=== PATIENT | male | born 1965 | race Caucasian/White ===

== ENCOUNTER 2022-11-05 17:38 | Emergency (ER) | payer OTHER ==
[2022-11-05 18:05] VITALS: BP 155/90; PULSE 88; RESP 20; TEMP 98.2; BMI 25.8
[2022-11-05] MEDS ORDERED: KETOROLAC TROMETHAMINE 30 MG/1 ML VIAL IM ONE (18:12)
[2022-11-05] MEDS ORDERED: KETOROLAC TROMETHAMINE 30 MG/1 ML VIAL ONE (18:48)
[2022-11-05 19:21] LABS: ALBUMIN 4.1 g/dl (3.4-5.0); BILIRUBIN,TOTAL 1.1 mg/dl (0.2-1); CALCIUM 8.9 mg/dl (8.5-10); CREATININE 1.2 mg/dl (0.55-1.3); TOT PROT 7.4 g/dl (6.4-8.2)
[2022-11-05] MEDS ORDERED: ONDANSETRON *ODT* 4 MG TABLET SL ONE (19:46)
[2022-11-05] MEDS ORDERED: ONDANSETRON *ODT* 4 MG TABLET ONE (19:48)
[2022-11-05 20:16] LABS: CALCIUM OXALATE CRYSTALS FEW /hpf (NONE SEEN)
[2022-11-05] MEDS ORDERED: TAMSULOSIN HCL 0.4 MG CAP PO ONE (20:32)
[2022-11-05] MEDS ORDERED: TAMSULOSIN HCL 0.4 MG CAP ONE (20:34)
== END 2022-11-05 20:35 | disposition home or self-care (01) ==
LOC: FER 17:38
PROC: 3E0233Z Introduction of Anti-inflammatory into Muscle, Percutaneous Approach (ICD-10-PCS; principal; 2022-11-05)
DX: N23 Unspecified renal colic (principal)
CPT/HCPCS: 36415; 74018-TC-FY; 76775-TC; 76856-TC; 80053; 81003; 81015; 87086; 99285-25; Q0162

== ENCOUNTER 2022-12-07 16:38 | Day surgery (SDC) | payer OTHER ==
[2022-12-07] MEDS ORDERED: KETOROLAC TROMETHAMINE 30 MG/1 ML VIAL IVPUSH ONE (16:53)
[2022-12-07] MEDS ORDERED: SODIUM CHLORIDE 1,000 ML IV ONE (16:53)
[2022-12-07] MEDS ORDERED: KETOROLAC TROMETHAMINE 15 MG/ML VIAL ONE (17:24)
[2022-12-07 17:26] LABS: HEMATOCRIT 44.3 % (35.4-49); HEMOGLOBIN 15.6 G/dL (11.7-16.9); MCH 32.3 pg (25.7-33.7); MCHC 35.2 g/dl (32.0-35.9); MEAN CELL VOLUME 91.8 fl (80-96); MEAN PLT VOLUME 8.3 fl (7.5-11.1); PLATELET COUNT 180.2 10^3/uL (134-434); RBC 4.83 10^6/uL (4.00-5.60); RDW 13.4 % (11.9-15.9); WHITE BLOOD COUNT 10.1 10^3/uL (4.0-10.8)
[2022-12-07 17:41] LABS: BILIRUBIN,TOTAL 1.6 mg/dl (0.2-1); CALCIUM 8.9 mg/dl (8.5-10); CREATININE 1.4 mg/dl (0.55-1.3); POTASSIUM 3.7 mmol/L (3.5-5.1); TOT PROT 7.2 g/dl (6.4-8.2)
[2022-12-07 19:18] LABS: PLATELET ESTIMATE ADEQUATE
[2022-12-07] MEDS ORDERED: ACETAMINOPHEN 325 MG TABLET (FP) PO PRN (23:41)
[2022-12-08] MEDS ORDERED: KETOROLAC TROMETHAMINE 15 MG/ML VIAL IVPUSH PRN (00:01)
[2022-12-08] MEDS ORDERED: TAMSULOSIN HCL 0.4 MG CAP PO ONE (02:35)
[2022-12-08 03:32] VITALS: BMI 28.4
[2022-12-08 08:27] LABS: INR 1.26 (0.83-1.09); PROTHROMBIN TIME (PATIENT) 14.5 SEC (9.7-13.0)
[2022-12-08 08:30] LABS: ACTIVATED PTT 32.9 SECONDS (25.2-36.5); HEMATOCRIT 41.2 % (35.4-49); HEMOGLOBIN 14.5 G/dL (11.7-16.9); MCH 32.2 pg (25.7-33.7); MCHC 35.1 g/dl (32.0-35.9); MEAN CELL VOLUME 91.5 fl (80-96); MEAN PLT VOLUME 8.9 fl (7.5-11.1); PLATELET COUNT 173.3 10^3/uL (134-434); RDW 13.4 % (11.9-15.9); WHITE BLOOD COUNT 6.1 10^3/uL (4.0-10.8)
[2022-12-08 08:34] LABS: CALCIUM 8.6 mg/dl (8.5-10); CREATININE 1.1 mg/dl (0.55-1.3); MAGNESIUM 2.2 mg/dL (1.8-2.4); POTASSIUM 3.8 mmol/L (3.5-5.1)
[2022-12-08] MEDS ORDERED: PANTOPRAZOLE 40 MG TABLET PO SCH (10:00)
[2022-12-08] MEDS ORDERED: PANTOPRAZOLE SODIUM 40 MG VIAL IVPUSH SCH (10:00)
[2022-12-08] MEDS ORDERED: ACETAMINOPHEN 1000 MG/100 ML BAG IVPB PRN (12:51)
[2022-12-09] MEDS ORDERED: PROPOFOL 80 ML ONE (07:35)
[2022-12-09] MEDS ORDERED: MIDAZOLAM HCL 2 MG/2 ML SINGLE DOSE VIAL ONE (07:37)
[2022-12-09] MEDS ORDERED: KETOROLAC TROMETHAMINE 30 MG/1 ML VIAL ONE (08:26)
[2022-12-09] MEDS ORDERED: DEXAMETHASONE SOD PHOSPHATE 4 MG/1 ML VIAL ONE (08:26)
[2022-12-09] MEDS ORDERED: ONDANSETRON 4 MG/2 ML VIAL ONE (08:26)
[2022-12-09] MEDS ORDERED: ONDANSETRON 4 MG/2 ML VIAL IVPUSH PRN ×2 (08:31→09:09)
[2022-12-09] MEDS ORDERED: oxyCODONE HCL 5 MG TABLET PO PRN ×2 (08:31→09:09)
[2022-12-09] MEDS ORDERED: ACETAMINOPHEN 1000 MG/100 ML BAG IVPB PRN (09:09)
[2022-12-09] MEDS ORDERED: ACETAMINOPHEN INJECTION 100 ML IVPB ONE (09:24)
[2022-12-09 10:32] LABS: BASO % 0.4 % (0-2.0); EOS % 1.2 % (0-4.5); HEMATOCRIT 39.3 % (35.4-49); HEMOGLOBIN 14.1 GM/dL (11.7-16.9); LYMPH % 16.5 % (8-40); MCH 31.3 pg (25.7-33.7); MCHC 35.8 g/dl (32.0-35.9); MEAN CELL VOLUME 87.3 fl (80-96); MEAN PLT VOLUME 8.3 fl (7.5-11.1); MONO % 6.7 % (3.8-10.2); NEUT % 75.2 % (42.8-82.8); PLATELET COUNT 169 10^3/uL (134-434); RDW 13.4 % (11.9-15.9); WHITE BLOOD COUNT 5.8 K/mm3 (4.0-10.0)
[2022-12-09 10:58] LABS: POTASSIUM 3.5 mmol/L (3.5-5.1)
[2022-12-09 10:59] LABS: BLOOD UREA NITROGEN 16.8 mg/dL (7-18); CALCIUM 8.7 mg/dL (8.5-10.1)
[2022-12-09 11:02] LABS: CREATININE 0.9 mg/dL (0.55-1.3)
[2022-12-09] MEDS: PANTOPRAZOLE SODIUM 40 MG VIAL IVPUSH SCH (12:35)
[2022-12-09] MEDS: CEPHALEXIN MONOHYDRATE 500 MG CAPSULE (UD) PO SCH ×2 (18:47→22:42)
[2022-12-10] MEDS: CEPHALEXIN MONOHYDRATE 500 MG CAPSULE (UD) PO SCH ×2 (06:04→10:40)
[2022-12-10 08:31] LABS: POTASSIUM 4.1 mmol/L (3.5-5.1)
[2022-12-10 08:36] LABS: CALCIUM 9.3 mg/dL (8.5-10.1)
[2022-12-10 08:37] LABS: ALBUMIN 3.3 g/dl (3.4-5.0); BLOOD UREA NITROGEN 14.4 mg/dL (7-18)
[2022-12-10 08:40] LABS: CREATININE 0.9 mg/dL (0.55-1.3)
[2022-12-10 08:42] LABS: BILIRUBIN,TOTAL 1.1 mg/dL (0.2-1); TOT PROT 6.7 g/dl (6.4-8.2)
[2022-12-10 10:00] LABS: BASO % 1.2 % (0-2.0); EOS % 0.9 % (0-4.5); HEMATOCRIT 40.3 % (35.4-49); HEMOGLOBIN 14.3 GM/dL (11.7-16.9); MCH 31.2 pg (25.7-33.7); MCHC 35.4 g/dl (32.0-35.9); MEAN PLT VOLUME 8.4 fl (7.5-11.1); MONO % 7.5 % (3.8-10.2); NEUT % 77.4 % (42.8-82.8); PLATELET COUNT 181 10^3/uL (134-434); RBC 4.58 M/mm3 (4.00-5.60); RDW 13.2 % (11.9-15.9); WHITE BLOOD COUNT 7.9 K/mm3 (4.0-10.0)
[2022-12-10] MEDS: PANTOPRAZOLE SODIUM 40 MG VIAL IVPUSH SCH (10:37)
[2022-12-10 10:43] VITALS: BP 135/92; PULSE 97; RESP 17; TEMP 98.8
[2022-12-15 23:17] LABS: CA OXALATE MONOHYDR. 100 % (.); SIZE 3x3 mm (.); WEIGHT 62 mg (.)
== END 2022-12-10 12:11 | disposition home or self-care (01) ==
LOC: FER 16:38 → FM/S 23:31 → UNDOADMIN 23:31 → FM/S 12-08 14:14 → J5S 12-08 14:14 → JASUSAT 12-09 14:46 → J5S 12-09 14:52 → JASUSAT 12-10 12:11
PROC: 0TC78ZZ Extirpation of Matter from Left Ureter, Via Natural or Artificial Opening Endoscopic (ICD-10-PCS; principal; 2022-12-09 07:30)
PROC: 0T778DZ Dilation of Left Ureter with Intraluminal Device, Via Natural or Artificial Opening Endoscopic (ICD-10-PCS; 2022-12-09 07:30)
DX: N13.2 Hydronephrosis with renal and ureteral calculous obstruction (principal)
CPT/HCPCS: 0241U-QW; 36415; 71045-TC-FY; 74176-TC; 76000-TC-FY; 76775-TC; 80048; 80053; 81003; 81015; 82360; 83735; 84100; 85025; 85027; 85610; 85730; 88300-TC; 93005; 94760; 99285-25; C1758; C1894; C2617